=== PATIENT | male | born 1995 | race Caucasian/White ===

== ENCOUNTER 2018-03-31 21:27 | Emergency (ER) | payer BC, OTHER ==
[~2018-03-31] VITALS: Ht 172.7 cm; Wt 66.1 kg
[2018-03-31 21:28] VITALS: BP 137/97
== END 2018-03-31 22:51 | disposition home or self-care (01) ==
LOC: ED 22:45
DX: S62.171A Displaced fracture of trapezium [larger multangular], right wrist, initial encounter for closed fracture (principal); X50.1XXA Overexertion from prolonged static or awkward postures, initial encounter; Y93.89 Activity, other specified; Y99.8 Other external cause status; Y92.89 Other specified places as the place of occurrence of the external cause
CPT/HCPCS: 29125; 99284